=== PATIENT | female | born 1985 | race Caucasian/White ===

== ENCOUNTER → 2018-02-16 | Outpatient (CLI) | payer BC | LOC: FIMAGING 09:58 | PROVIDERS: ATTEND Obstetrics & Gynecology | DX: O44.42 Low lying placenta NOS or without hemorrhage, second trimester (principal); O26.891 Other specified pregnancy related conditions, first trimester; M06.9 Rheumatoid arthritis, unspecified; Z3A.22 22 weeks gestation of pregnancy ==

== ENCOUNTER → 2018-04-13 | Outpatient (CLI) | payer BC | LOC: FIMAGING 09:07 | PROVIDERS: ATTEND Obstetrics & Gynecology | DX: O40.3XX0 Polyhydramnios, third trimester, not applicable or unspecified (principal); O26.893 Other specified pregnancy related conditions, third trimester; M06.9 Rheumatoid arthritis, unspecified; Z3A.30 30 weeks gestation of pregnancy ==

== ENCOUNTER → 2018-05-10 | Outpatient (CLI) | payer BC | LOC: FIMAGING 09:47 | PROVIDERS: ATTEND Obstetrics & Gynecology | DX: O40.3XX0 Polyhydramnios, third trimester, not applicable or unspecified (principal); O26.893 Other specified pregnancy related conditions, third trimester; M06.9 Rheumatoid arthritis, unspecified; Z3A.34 34 weeks gestation of pregnancy ==